=== PATIENT | female | born 1965 | race Caucasian/White ===

== ENCOUNTER 2022-03-22 14:58 | Emergency (ER) | payer BC, SELFPAY ==
--- NOTE | ~2022-03-22 | XR_ITS ---
XR chest 2V DATE: 03/22/2022 15:45 INDICATION: Aspirated food last night. Coughing. TECHNIQUE: 2 views COMPARISON: None FINDINGS: Normal heart size. No hilar or mediastinal enlargement. No pulmonary infiltrate or consolid ation, pleural effusion or pulmonary vascular congestion or pneumothorax. Osteopenia. Status post cholecystectomy. IMPRESSION: No active cardiac pulmonary disease Status post cholecystectomy Reviewed, dictated and finalized at location A.
[2022-03-22 15:25] VITALS: BP 135/87; PULSE 70; RESP 18; TEMP 36.4; O2SAT 100
--- NOTE | 2022-03-22 15:31 | ED.URI ---
HPI - URI/Sore Throat General Chief Complaint: Upper Respiratory Infection Stated Complaint: throat and mid chest discomfort Time Seen by Provider: 03/22/22 15:31 Source: patient Mode of arrival: ambulatory Limitations: no limitations History of Present Illness HPI Narrative: 57-year-old female presents with complaint of not feeling well and cough since yesterday. 3 days ago she reports that she ate [employer]. Woke up in the middle the night choking and belching. States that she aspirated some of the belch up white [place]. The next day she was coughing. Afebrile, denies shortness of breath and chest pain. States it feels like something viral is starting . Denies nausea vomiting diarrhea. Speaking in full sentences. Not taking any [id number] medications to treat her symptoms. Feels that indigestion is gone. All systems reviewed and negative except as noted above. Related Data Home Medications Medication Instructions Recorded Confirmed carbamazepine 400 mg 1 tablet PO BID 03/22/22 03/22/22 tablet,extended release,12 hr levothyroxine 137 mcg tablet 1 tablet DIRECTED 03/22/22 03/22/22 levothyroxine 150 mcg tablet 1 tablet DIRECTED 03/22/22 03/22/22 Allergies Allergy/AdvReac Type Severity Reaction Status Date / Time phenytoin [From Dilantin] Allergy Unknown Verified 03/22/22 15:32 Review of Systems Review of Systems: CONSTITUTIONAL: Denies fever, chills, or sweats. EYES: Denies visual changes, redness, or discharge. ENT: Denies rhinorrhea, congestion, sore throat, or otalgia. CARDIOVASCULAR: Denies chest pain, palpitations, or edema. RESPIRATORY: Reports cough. Denies dyspnea. GASTROINTESTINAL: Denies abdominal pain, nausea, vomiting, or diarrhea. GENITOURINARY: Denies dysuria or hematuria. SKIN: Denies rash or itching. MUSCULOSKELETAL: Denies back pain, joint pain, or myalgia. NEUROLOGIC: Denies headache, numbness, or weakness. PSYCHIATRIC: Denies anxiety or depression. All other systems reviewed are negative, except as documented in HPI. PMFSH Comments At time of signature, agree with nursing past medical, surgical, social and family history. There is no relevant family history pertinent to the presenting complaint. Exam Narrative: GENERAL: This is a well-nourished, well-developed patient, in no apparent distress. HEAD: normocephalic, atraumatic. EYES: PERRL. Sclera clear/white. Vision is grossly intact. EARS: External ears normal, auditory canals clear and without drainage, TMs normal without perforation. Hearing grossly intact. NOSE: External nose normal with no obvious nasal discharge, nares without redness, no rhinorrhea. THROAT: Mucous membranes moist, posterior pharynx clear. NECK: Neck supple, non-tender without lymphadenopathy, masses or thyromegaly. CARDIOVASCULAR: Regular rate and rhythm without murmurs, gallops, or rubs. RESPIRATORY: Clear to auscultation. Breath sounds equal bilaterally. No wheezes, rales, or rhonchi. SKIN: warm, Dry, intact with no suspicious lesions or rash, good texture and turgor. NEURO: awake, alert, and oriented to person, place and time. There were no obvious focal neurologic abnormalities. EXTREMITIES: Normal range of motion to all extremities. Course Course Level of Care: Express Care Visit Vital Signs Vital signs: Vital Signs Temperature 36.4 C 03/22/22 15:25 Pulse Rate 70 03/22/22 15:25 Respiratory Rate 18 03/22/22 15:25 Blood Pressure 135/87 03/22/22 15:25 Pulse Oximetry 100 03/22/22 15:25 Oxygen Delivery Room Air 03/22/22 15:25 Temperature 36.4 C 03/22/22 15:25 Pulse Rate 70 03/22/22 15:25 Respiratory Rate 18 03/22/22 15:25 Blood Pressure 135/87 03/22/22 15:25 Pulse Oximetry 100 03/22/22 15:25 Oxygen Delivery Room Air 03/22/22 15:25 Reviewed MDM - URI/Sore Throat MDM Narrative Medical decision making narrative: Normal chest x-ray. Discussed results with patient. Recommend venkata
== END 2022-03-22 16:01 | disposition home or self-care (01) ==
PROVIDERS: Emergency Provider Nurse Practitioner Family; PCP Hospitalist
DX: B34.9 Viral infection, unspecified (principal); E03.9 Hypothyroidism, unspecified
CPT/HCPCS: 71046; 99203; G0463